=== PATIENT | male | born 1930 | race Caucasian/White ===

== ENCOUNTER 2018-05-26 12:09 | Observation (INO) | payer MEDICARE ==
--- NOTE | 2018-05-26 13:50 | ED ---
General Adult HPI - General Chief complaint: Syncope Stated complaint: passed out in bathroom, hit head Time Seen by Provider: 05/26/18 12:15 Source: patient, family, RN notes reviewed Mode of arrival: wheelchair Limitations: no limitations - History of Present Illness Initial comments: This is an 87-year-old male who presents emergency Department complaining of a syncopal episode. Patient states he had about 10 years ago and ended up getting a stent in his heart. Patient states today he was in the bathroom about taking shower he became lightheaded and then passed out and hit his head. Patient states he notices he is bleeding in the back of the head at this point time. Patient denies any blood thinners. Patient states he has no headache at this time he denies any neck pain denies any numbness weakness. Patient states he never had any chest pain difficulty breathing or shortness of breath. Patient denies any recent fever chills or cough. Patient states currently has no symptoms at all. - Related Data Home Medications Medication Instructions Recorded Confirmed Acetaminophen [Tylenol Arthritis] 650 mg PO BID 05/26/18 05/26/18 Aspirin [Adult Low Dose Aspirin EC] 81 mg PO DAILY 05/26/18 05/26/18 Atorvastatin [Lipitor] 20 mg PO HS 05/26/18 05/26/18 Doxycycline [Vibramycin] 50 mg PO DAILY PRN 05/26/18 05/26/18 Finasteride [Proscar] 5 mg PO DAILY@1200 05/26/18 05/26/18 Furosemide [Lasix] 40 mg PO DAILY PRN 05/26/18 05/26/18 Lisinopril [Zestril] 2.5 mg PO DAILY 05/26/18 05/26/18 Metoprolol Tartrate [Lopressor] 25 mg PO DAILY@1200 05/26/18 05/26/18 Tamsulosin HCl [Flomax] 0.4 mg PO DAILY@1200 05/26/18 05/26/18 Triamcinolone 0.1% Cream [Kenalog 1 applic TOPICAL DAILY PRN 05/26/18 05/26/18 0.1% Cream] metroNIDAZOLE [metroNIDAZOLE 0.75% 1 applic TOPICAL DAILY PRN 05/26/18 05/26/18 Gel] Allergies Allergy/AdvReac Type Severity Reaction Status Date / Time No Known Allergies Allergy Verified 05/26/18 14:10 Review of Systems ROS Statement: Those systems with pertinent positive or pertinent negative responses have been documented in the HPI. ROS Other: All systems not noted in ROS Statement are negative. Past Medical History Past Medical History: Hyperlipidemia, Hypertension, Prostate Disorder History of Any Multi-Drug Resistant Organisms: None Reported Past Surgical History: Heart Catheterization With Stent, Orthopedic Surgery Past Psychological History: No Psychological Hx Reported Smoking Status: Former smoker Past Alcohol Use History: None Reported Past Drug Use History: None Reported General Exam - General Exam Comments Initial Comments: GENERAL: Patient is well-developed and well-nourished. Patient is nontoxic and well- hydrated and is in mild distress. ENT: Neck is soft and supple. No significant lymphadenopathy is noted. Oropharynx is clear. Moist mucous membranes. Neck has full range of motion without eliciting any pain. EYES: The sclera were anicteric and conjunctiva were pink and moist. Extraocular movements were intact and pupils were equal round and reactive to light. Eyelids were unremarkable. PULMONARY: Unlabored respirations. Good breath sounds bilaterally. No audible rales rhonchi or wheezing was noted. CARDIOVASCULAR: There is a regular rate and rhythm without any murmurs gallops or rubs. ABDOMEN: Soft and nontender with normal bowel sounds. No palpable organomegaly was noted. There is no palpable pulsatile mass. SKIN: Skin is clear with no lesions or rashes and otherwise unremarkable. NEUROLOGIC: Patient is alert and oriented x3. Cranial nerves II through XII are grossly intact. Motor and sensory are also intact. Normal speech, volume and content. Symmetrical smile. MUSCULOSKELETAL: Normal extremities with adequate strength and full range of motion. 2+ bilaterally LYMPHATICS: No significant lymphadenopathy is noted PSYCHIATRIC: Normal psychiatric evaluation. Limitations: no limitations Course Vital Signs 05/26/18 05/26/18 05/26/18 12:12 13:12 13:39 Temperature 97.7 F Pulse Rate 80 70 Respiratory 18 18 Rate Blood Pressure 100/61 114/64 121/53 O2 Sat by Pulse 99 99 Oximetry Procedures - Laceration Laceration #1 Consent Obtained: verbal consent Time Out Performed: Yes Indication: laceration Site: scalp Description: linear Depth: simple, single layer Pre-repair: wound explored Size of Sutures: other (3 cathleen were placed wound approximated well) Technique: simple, interrupted Patient Tolerated Procedure: well Medical Decision Making - Medical Decision Making Patient stated that his tetanus is up-to-date EKG shows sinus rhythm with occasional PVC at 70 bpm MO interval is 184 QRS is 138 QT interval 408 QTC is 465. Patient's EKG shows no ST segment elevation or depression or T wave abnormalities are noted. Patient has a right bundle aashish block. I spoke to the patient's primary medical care doctor and he agreed to admit the patient admitted the patient wrote admitting orders. - Lab Data Result diagrams: 05/26/18 13:50 05/26/18 13:50 Lab Results 05/26/18 05/26/18 05/26/18 Range/Units 13:50 13:50 13:50 WBC 9.7 (3.8-10.6) k/uL RBC 4.23 L (4.30-5.90) m/uL Hgb 13.9 (13.0-17.5) gm/dL Hct 42.9 (39.0-53.0) % MCV 101.2 H (80.0-100.0) fL MCH 32.8 (25.0-35.0) pg MCHC 32.4 (31.0-37.0) g/dL RDW 13.1 (11.5-15.5) % Plt Count 204 (150-450) k/uL Neutrophils % 82 % Lymphocytes % 10 % Monocytes % 5 % Eosinophils % 1 % Basophils % 0 % Neutrophils # 8.0 H (1.3-7.7) k/uL Lymphocytes # 0.9 L (1.0-4.8) k/uL Monocytes # 0.5 (0-1.0) k/uL Eosinophils # 0.1 (0-0.7) k/uL Basophils # 0.0 (0-0.2) k/uL Macrocytosis Slight PT (9.0-12.0) sec INR (<1.2) APTT (22.0-30.0) sec Sodium 141 (137-145) mmol/L Potassium 5.2 H (3.5-5.1) mmol/L Chloride 106 (98-107) mmol/L Carbon Dioxide 27 (22-30) mmol/L Anion Gap 8 mmol/L BUN 25 H (9-20) mg/dL Creatinine 1.22 (0.66-1.25) mg/dL Est GFR (CKD-EPI)AfAm 61 (>60 ml/min/1.73 sqM) Est GFR (CKD-EPI)NonAf 52 (>60 ml/min/1.73 sqM) Glucose 104 H (74-99) mg/dL Calcium 9.5 (8.4-10.2) mg/dL Magnesium 2.3 (1.6-2.3) mg/dL Total Bilirubin 0.4 (0.2-1.3) mg/dL AST 27 (17-59) U/L ALT 29 (21-72) U/L Alkaline Phosphatase 66 (38-126) U/L Total Creatine Kinase 123 (55-170) U/L CK-MB (CK-2) 1.8 (0.0-2.4) ng/mL CK-MB (CK-2) Rel Index 1.5 Troponin I <0.012 (0.000-0.034) ng/mL Total Protein 7.2 (6.3-8.2) g/dL Albumin 4.2 (3.5-5.0) g/dL 05/26/18 Range/Units 13:50 WBC (3.8-10.6) k/uL RBC (4.30-5.90) m/uL Hgb (13.0-17.5) gm/dL Hct (39.0-53.0) % MCV (80.0-100.0) fL MCH (25.0-35.0) pg MCHC (31.0-37.0) g/dL RDW (11.5-15.5) % Plt Count (150-450) k/uL Neutrophils % % Lymphocytes % % Monocytes % % Eosinophils % % Basophils % % Neutrophils # (1.3-7.7) k/uL Lymphocytes # (1.0-4.8) k/uL Monocytes # (0-1.0) k/uL Eosinophils # (0-0.7) k/uL Basophils # (0-0.2) k/uL Macrocytosis PT 9.9 (9.0-12.0) sec INR 1.0 (<1.2) APTT 21.4 L (22.0-30.0) sec Sodium (137-145) mmol/L Potassium (3.5-5.1) mmol/L Chloride (98-107) mmol/L Carbon Dioxide (22-30) mmol/L Anion Gap mmol/L BUN (9-20) mg/dL Creatinine (0.66-1.25) mg/dL Est GFR (CKD-EPI)AfAm (>60 ml/min/1.73 sqM) Est GFR (CKD-EPI)NonAf (>60 ml/min/1.73 sqM) Glucose (74-99) mg/dL Calcium (8.4-10.2) mg/dL Magnesium (1.6-2.3) mg/dL Total Bilirubin (0.2-1.3) mg/dL AST (17-59) U/L ALT (21-72) U/L Alkaline Phosphatase (38-126) U/L Total Creatine Kinase (55-170) U/L CK-MB (CK-2) (0.0-2.4) ng/mL CK-MB (CK-2) Rel Index Troponin I (0.000-0.034) ng/mL Total Protein (6.3-8.2) g/dL Albumin (3.5-5.0) g/dL Disposition Clinical Impression: Scalp laceration, Syncope and collapse Disposition: ADMITTED IP TO THIS HOSP Referrals: Santino Fields MD [Primary Care Provider] - 1-2 days Time of Disposition: 15:13
[2018-05-26 14:20] LABS: Basophils % (A) 0 %; Eosinophils # (A) 0.1 k/uL (0-0.7); Eosinophils % (A) 1 %; HCT 42.9 % (39.0-53.0); HGB 13.9 gm/dL (13.0-17.5); Lymphocytes # (A) 0.9 k/uL (1.0-4.8); Lymphocytes % (A) 10 %; MCH 32.8 pg (25.0-35.0); MCHC 32.4 g/dL (31.0-37.0); MCV 101.2 fL (80.0-100.0); Macrocytosis Slight; Mean Platelet Volume 7.1; Monocytes # (A) 0.5 k/uL (0-1.0); Monocytes % (A) 5 %; Neutrophils % (A) 82 %; Platelet Count 204 k/uL (150-450); RBC 4.23 m/uL (4.30-5.90); RDW 13.1 % (11.5-15.5); WBC 9.7 k/uL (3.8-10.6)
--- NOTE | 2018-05-26 14:20 | CT ---
EXAMINATION TYPE: CT brain chetna chaparro DATE OF EXAM: 05/26/2018 COMPARISON: None HISTORY: syncopal episode/fell backwards /posterior head laceration CT DLP: 1606.[address] of the brain was performed. The ventricles, basal cisterns and sulci overlying the cerebral convexities demonstrate mild enlargem ent. There is no evidence for intracranial hemorrhage or sulcal effacement. There is decreased attenuatio n about the periventricular white matter and deep white matter of both cerebral hemispheres, compatib le with chronic small vessel ischemia. No mass effects are seen. If symptoms persist consider MRI. Osseous calvarium is intact. IMPRESSION: 1. Age related atrophic and chronic small vessel ischemic change without acute intracranial process seen at this time. CT Cervical Spine: Unenhanced CT of the cervical spine was performed with bone and soft tissue window settings submitted . Coronal and sagittal reconstruction is obtained. There is normal alignment and prevertebral soft tissues. No evidence for acute cervical fracture . Scattered degenerative disc disease and spondylosis. Biapical scarring. IMPRESSION: 1. No evidence for acute fracture or subluxation of the cervical spine.
--- NOTE | 2018-05-26 14:20 | XR ---
EXAMINATION TYPE: XR chest 2V DATE OF EXAM: 05/26/2018 COMPARISON: NONE HISTORY: Shortness of breath TECHNIQUE: Frontal and lateral views of the chest are obtained. FINDINGS: Scattered senescent parenchymal changes noted. Hyperinflation compatible with COPD. No evidence for infiltrate. No evidence for atelectasis. Heart size is mildly enlarged. Mediastinal structures are stable and grossly unremarkable. No evidence for hilar prominence. Degenerative changes dorsal spine. IMPRESSION: 1. No evidence for acute pulmonary disease.
[2018-05-26 14:33] LABS: Albumin 4.2 g/dL (3.5-5.0); Calcium 9.5 mg/dL (8.4-10.2); Magnesium 2.3 mg/dL (1.6-2.3); Potassium 5.2 mmol/L (3.5-5.1); Total Bilirubin 0.4 mg/dL (0.2-1.3); Total Protein 7.2 g/dL (6.3-8.2)
[2018-05-26 14:37] LABS: Creatine Kinase 123 U/L (55-170)
[2018-05-26 14:41] LABS: Prothrombin Time 9.9 sec (9.0-12.0)
[2018-05-26 14:45] LABS: Partial Thromboplastin Time 21.4 sec (22.0-30.0)
[2018-05-26 14:50] LABS: Creatine Kinase MB 1.8 ng/mL (0.0-2.4); Troponin I <0.012 ng/mL (0.000-0.034)
[2018-05-26] MEDS ORDERED: NITROGLYCERIN SL TABS 0.4 MG TAB SUBLINGUAL PRN (15:13)
[2018-05-26 18:11] VITALS: RESP 18
[2018-05-26] MEDS ORDERED: DOXYCYCLINE 50 MG CAP PO PRN (18:14)
[2018-05-26] MEDS ORDERED: METRONIDAZOLE TOPICAL PRN (18:14)
--- NOTE | 2018-05-26 18:48 | HP ---
HISTORY AND PHYSICAL Mr. He is an 87-year-old gentleman who presented to the emergency room this morning. Apparently he got up, went to the bathroom, felt somewhat lightheaded and then passed out. He hit his head on the floor in the bathroom and has received 3 cathleen. His heard the fall. The patient was responsive but did not get up right away. Eventually EMS was called. Patient at that time refused transport, but later family members brought the patient to the emergency room. Patient states otherwise he has had no chest pain, shortness of breath. He has had some lightheaded and dizziness associated with this as mentioned above. Overall in the past few weeks, though , he has been doing well, without any unusual concerns. Past medical history: He does have a history of hypertension, hyperlipidemia, osteoarthritis of the knees, BPH, history of coronary artery disease, for which in the past he had stent placed. Venous insufficiency. MEDICATIONS: Home medications include: 1. Acetaminophen as needed for pain. 2. Low-dose aspirin 81 mg daily. 3. Atorvastatin 20 mg at bedtime. 4. Doxycycline 50 mg daily for his rosacea. 5. Proscar 5 mg daily for BPH. 6. Lasix 40 mg daily if needed for edema. 7. Lisinopril has been decreased down to 2.5 daily. 8. Metoprolol 25 mg daily. 9. Tamsulosin 0.4 mg. 10.He does use metronidazole topically applied to the rosacea and triamcinolone cream as needed p.r.n. ALLERGIES: NO KNOWN ALLERGIES. REVIEW OF SYSTEMS: As mentioned in history of present illness. No other episodes of blacking out. No unusual headaches. No visual disturbances. No nausea, vomiting. No new urinary or bowel symptomatology. No chest pain. He has had 2+ edema that has been rather consistent overall. FAMILY HISTORY: Positive for heart disease in his mother and asthma in a grandfather. SOCIAL HISTORY: He still lives with his locally. He is a former smoker. No history of any excessive alcohol usage. SURGICAL HISTORY: Surgical history includes: 1. Previous heart catheterization and stenting. 2. Previous orthopedic surgery. PHYSICAL EXAMINATION: He is sitting up in chair, generally alert and oriented. Initial temperature was 97.7. Blood pressure was 100/61, but did increase up to 121/53. Pulse 80 to 70, respirations around 18, oxygen saturation 99. Head does reveal a laceration with 3 cathleen in the back of the occiput. The neck is not stiff. Extraocular movements were intact. No carotid bruits or adenopathy detected in the neck. Lungs were clear on auscultation. Heart tones were for the most part regular without definite murmurs or rubs appreciated. Abdomen was nontender, soft. No organomegaly. Extremities revealed 2+ edema bilaterally. Neurologically, though, he is alert and oriented. Cranial nerves intact. No focal weakness noted peripherally. LABS: Lab testing revealed a white count of 9.7, hemoglobin 13.9, and a platelet count of 204. INR was 1.0. His potassium was slightly elevated at 5.2, CO2 content 27, BUN 25 with creatinine 1.22. Calcium was 9.5, blood sugar 104, GFR of 52. Liver function tests were good. Troponin less than 0.012. Albumin normal at 4.2. EKG revealed a sinus rhythm, right bundle branch block and left anterior fascicular block. No definite ischemic changes noted. Chest x-ray revealed no evidence of active pulmonary disease. CT of the head and neck revealed age-related atrophic and chronic small-vessel ischemic change without acute intracranial process. CT of the neck revealed no evidence of acute fracture of the cervical spine. IMPRESSION: Overall, this 87-year-old gentleman with a history as stated above with a sudden onset of syncope with loss of consciousness, fall and closed head injury. Patient does have underlying hypertension and coronary artery disease as stated above. He will be monitored. Cardiology consult to be obtained. Further labs to be obtained. Further recommendations pending clinical response and results of above. MMODL / IJN: [id number] / [facility]
[2018-05-26 18:57] VITALS: BMI 32.3
[2018-05-26 20:22] LABS: Creatine Kinase 129 U/L (55-170)
[2018-05-26 20:35] LABS: Creatine Kinase MB 1.6 ng/mL (0.0-2.4); Troponin I <0.012 ng/mL (0.000-0.034)
[2018-05-26] MEDS: ACETAMINOPHEN TAB 325 MG TAB PO SCH (20:52)
[2018-05-26] MEDS ORDERED: ATORVASTATIN 20 MG TAB PO SCH (21:00)
[2018-05-27 02:53] LABS: Cholesterol 153 mg/dL (<200); HDL Cholesterol 44 mg/dL (40-60); LDL Cholesterol,Calculated 84 mg/dL (0-99); Triglycerides 126 mg/dL (<150)
[2018-05-27 03:17] LABS: Creatine Kinase 141 U/L (55-170)
[2018-05-27 03:31] LABS: Creatine Kinase MB 1.3 ng/mL (0.0-2.4); Troponin I <0.012 ng/mL (0.000-0.034)
--- NOTE | 2018-05-27 08:07 | P.PN ---
Progress Note - Text The patient is a 87-year-old gentleman who yesterday came to the emergency room after a syncopal type episode after a loss of consciousness in the bathroom hitting his head on the floor and required 3 cathleen. He does have underlying history of coronary artery disease with previous stent placement. This morning he is sitting at the side of the bed. States he generally feels okay without the chest pain or shortness of breath. No new neurological symptomatology. Vital signs blood temperature 97.6 with a pulse of 68 and respirations 18. Blood pressure 121/69 and he is 95% saturated. Lung and heart examination is clear. Patient does have grade 1-2 edema bilaterally. chronically. He is overall alert and oriented. Cranial nerves intact. No focal weakness noted. The troponins 3 were less than 0.012. CKs were also within normal limits. Impressions and plans Patient initially presented with syncopal episode. Cardiology evaluation is in progress. Echocardiogram has been ordered. Patient is being monitored. We'll wait for their further recommendations. I discussed with patient and nursing staff at bedside this morning.
[2018-05-27] MEDS ORDERED: ASPIRIN 325 MG TAB PO SCH (09:00)
[2018-05-27] MEDS ORDERED: ASPIRIN 81 MG PO SCH (09:00)
[2018-05-27] MEDS ORDERED: LISINOPRIL 2.5 MG TAB PO SCH (09:00)
[2018-05-27] MEDS: ACETAMINOPHEN TAB 325 MG TAB PO SCH (09:14)
--- NOTE | 2018-05-27 10:13 | P.CRDCN ---
History of Present Illness History of present illness: This is a pleasant 87-year-old male past medical history significant for coronary artery disease status post angioplasty of the mid RCA in 2005, hypertension, dyslipidemia, peripheral vascular disease, carotid artery disease , former nicotine dependence and enlarged prostate. He follows with Dr. Sevilla in the office. We've been asked to see him in consultation for syncope. He states yesterday he was in the restroom yesterday trying to have a bowel movement. He was unable to do so. He decided to take a shower. Upon standing from the toilet he felt light headed and then passed out. He states he lost consciousness but unsure of how long since he was alone at the time. Scalp laceration requiring stitches. Denies chest pain, shortness of breath, nausea, vomiting, palpitations or diaphoresis. Upon arrival to ED his blood pressure was 100/61 heart rate 80. Telemetry tracings have been unremarkable for acute arrhythmia. He denies any further symptoms of dizziness. EKG reveals right bundle branch block pattern. Chest xray negative for an acute cardiopulmonary process. CT of the brain negative for an acute intracranial process. Age-related atrophic and chronic small vessel ischemic changes noted. Laboratory data reviewed, WBC 9.7, hemoglobin 13.9, platelets 204, sodium 141, potassium 5.2, creatinine 1.22, magnesium 2.3, cardiac enzymes negative 3, LDL 84 and HDL 44. Current cardiac medications include lisinopril 2.5 mg daily, aspirin 81 mg daily , atorvastatin 20 mg daily, Lopressor 25 mg daily and Lasix 40 mg daily when necessary. Most recent echocardiogram performed in the office 2015 reveals preserved left ventricular systolic function with mild TR and mild MR. Most recent carotid duplex performed in February 2018 reveals mild disease in the left ICA, moderate disease in the right ICA with bilateral antegrade flow noted. At the time of my exam: CONSTITUTIONAL: Denies fever. Denies chills. EYES: Denies blurred vision. Denies vision changes. Denies eye pain. EARS, NOSE, MOUTH & THROAT: Denies headache. Denies sore throat. Denies ear pain. CARDIOVASCULAR: Denies chest pain. Denies shortness of breath. Denies orthopnea. Denies PND. Denies palpitations. RESPIRATORY: Denies cough. GASTROINTESTINAL: Denies abdominal pain. Denies diarrhea. Denies constipation. Denies nausea. Denies vomiting. MUSCULOSKELETAL: Denies myalgias. INTEGUMENTARY: Denies pruitis. Denies rash. NEUROLOGIC: Denies numbness. Denies tingling. Denies weakness. PSYCHIATRIC: Denies anxiety. Denies depression. ENDOCRINE: Denies fatigue. Denies weight change. Denies polydipsia. Denies polyurina. GENITOURINARY: Denies burning, hematuria or urgency with micturation. HEMATOLOGIC: Denies history of anemia. Denies bleeding. Blood pressure 130/69 heart rate 66 afebrile maintaining oxygen saturation on room air GENERAL: This is a 87-year-old male in no apparent distress at the time of my examination. HEENT: Laceration noted to posterior scalp. Pupils are equal, round. Sclerae anicteric. Conjunctivae are clear. Mucous membranes of the mouth are moist. Neck is supple. There is no jugular venous distention. No carotid bruit is heard. LUNGS: Clear to auscultation no wheezes, rales or rhonchi. No chest wall tenderness is noted on palpation or with deep breathing. HEART: Regular rate and rhythm with systolic ejection murmur at the left sternal border, no rubs or gallops. S1 and S2 heard. ABDOMEN: Soft, non-tender. Bowel sounds are heard. No organomegaly noted. EXTREMITIES: Trace bilateral lower extremity non-pitting edema and no calf tenderness noted. Gauze bandages to left wrist and lower arm. VASCULAR: Radial and dorsalis pedis pulses palpated, no evidence of clubbing. NEUROLOGIC: Patient is awake, alert and oriented x3. ASSESSMENT Vasovagal syncope secondary to hypotension History of coronary artery disease 2006 with angioplasty to mid RCA Hyperkalemia Hypertension Dyslipidemia Peripheral vascular disease, carotid arteries Former nicotine dependence PLAN Check orthostatic vital signs. Obtain 2D echocardiogram and doppler study to assess cardiac structure and function. Discontinue lisinopril for hypotension. Repeat potassium. Increase activity and ambulation in the halls. Watch on telemetry for an acute arrhythmia. Should be able to be discharged home later today if no further symptoms. Follow up with Dr. Sevilla in 2-3 weeks. Thank you kindly for this consultation. Nurse Practitioner note has been reviewed, I agree with a documented findings and plan of care. Patient was seen and examined. Past Medical History Past Medical History: Hyperlipidemia, Hypertension, Prostate Disorder Additional Past Medical History / Comment(s): BPH History of Any Multi-Drug Resistant Organisms: None Reported Past Surgical History: Heart Catheterization With Stent, Orthopedic Surgery Additional Past Surgical History / Comment(s): arthroscopy right knee Date of Last Stent Placement:: 2005 Past Psychological History: No Psychological Hx Reported Smoking Status: Former smoker Past Alcohol Use History: None Reported Past Drug Use History: None Reported - Past Family History Mother History Unknown: Yes Father History Unknown: Yes Medications and Allergies Home Medications Medication Instructions Recorded Confirmed Type Acetaminophen [Tylenol Arthritis] 650 mg PO BID 05/26/18 05/26/18 History Aspirin [Adult Low Dose Aspirin EC] 81 mg PO DAILY 05/26/18 05/26/18 History Atorvastatin [Lipitor] 20 mg PO HS 05/26/18 05/26/18 History Doxycycline [Vibramycin] 50 mg PO DAILY PRN 05/26/18 05/26/18 History Finasteride [Proscar] 5 mg PO DAILY@1200 05/26/18 05/26/18 History Furosemide [Lasix] 40 mg PO DAILY PRN 05/26/18 05/26/18 History Metoprolol Tartrate [Lopressor] 25 mg PO DAILY@1200 05/26/18 05/26/18 History Tamsulosin HCl [Flomax] 0.4 mg PO DAILY@1200 05/26/18 05/26/18 History Triamcinolone 0.1% Cream [Kenalog 1 applic TOPICAL DAILY PRN 05/26/18 05/26/18 History 0.1% Cream] metroNIDAZOLE [metroNIDAZOLE 0.75% 1 applic TOPICAL DAILY PRN 05/26/18 05/26/18 History Gel] Allergies Allergy/AdvReac Type Severity Reaction Status Date / Time No Known Allergies Allergy Verified 05/26/18 14:10 Physical Exam Vitals: Vital Signs Temp Pulse Pulse Resp BP BP BP 05/27/18 07:00 97.6 F 68 18 05/27/18 04:00 18 05/27/18 03:00 98 F 72 18 05/26/18 23:01 18 05/26/18 23:00 97.9 F 70 18 05/26/18 20:00 18 05/26/18 18:07 97.4 F L 86 18 05/26/18 17:55 98.0 F 05/26/18 17:45 87 20 142/52 05/26/18 16:02 74 18 125/62 05/26/18 15:27 134/63 123/62 05/26/18 13:39 70 18 121/53 05/26/18 13:12 114/64 05/26/18 12:12 97.7 F 80 18 100/61 BP BP Pulse Ox 05/27/18 07:00 121/69 95 05/27/18 04:00 05/27/18 03:00 109/61 97 05/26/18 23:01 05/26/18 23:00 94/54 97 05/26/18 20:00 05/26/18 18:07 127/67 95 05/26/18 17:55 05/26/18 17:45 97 05/26/18 16:02 100 05/26/18 15:27 100/53 05/26/18 13:39 99 05/26/18 13:12 05/26/18 12:12 99 Intake and Output 05/26/18 05/27/18 05/27/18 22:59 06:59 14:59 Other: # Voids 1 2 Weight 99.6 kg Results 05/26/18 13:50 05/26/18 13:50 Cardiac Enzymes 05/26/18 05/26/18 05/26/18 Range/Units 13:50 13:50 19:18 AST 27 (17-59) U/L CK-MB (CK-2) 1.8 1.6 (0.0-2.4) ng/mL Troponin I <0.012 <0.012 (0.000-0.034) ng/mL 05/27/18 Range/Units 02:00 AST (17-59) U/L CK-MB (CK-2) 1.3 (0.0-2.4) ng/mL Troponin I <0.012 (0.000-0.034) ng/mL Coagulation 05/26/18 Range/Units 13:50 PT 9.9 (9.0-12.0) sec APTT 21.4 L (22.0-30.0) sec Lipids 05/27/18 Range/Units 02:00 Triglycerides 126 (<150) mg/dL Cholesterol 153 (<200) mg/dL HDL Cholesterol 44 (40-60) mg/dL CBC 05/26/18 Range/Units 13:50 WBC 9.7 (3.8-10.6) k/uL RBC 4.23 L (4.30-5.90) m/uL Hgb 13.9 (13.0-17.5) gm/dL Hct 42.9 (39.0-53.0) % Plt Count 204 (150-450) k/uL Comprehensive Metabolic Panel 05/26/18 Range/Units 13:50 Sodium 141 (137-145) mmol/L Potassium 5.2 H (3.5-5.1) mmol/L Chloride 106 (98-107) mmol/L Carbon Dioxide 27 (22-30) mmol/L BUN 25 H (9-20) mg/dL Creatinine 1.22 (0.66-1.25) mg/dL Glucose 104 H (74-99) mg/dL Calcium 9.5 (8.4-10.2) mg/dL AST 27 (17-59) U/L ALT 29 (21-72) U/L Alkaline Phosphatase 66 (38-126) U/L Total Protein 7.2 (6.3-8.2) g/dL Albumin 4.2 (3.5-5.0) g/dL Current Medications Generic Name Dose Route Start Last Admin Trade Name Freq PRN Reason Stop Dose Admin Acetaminophen 650 mg 05/26/18 21:00 05/26/18 20:52 Tylenol Tab PO Not Given BID [facility] Aspirin 81 mg 05/27/18 09:00 Aspirin PO DAILY [facility] Atorvastatin Calcium 20 mg 05/26/18 21:00 05/26/18 19:48 Lipitor PO 20 mg HS [facility] Administration Doxycycline Monohydrate 50 mg 05/26/18 18:14 Vibramycin PO DAILY PRN ROSACEA Finasteride 5 mg 05/27/18 12:00 Proscar PO DAILY@1200 [facility] Lisinopril 2.5 mg 05/27/18 09:00 Zestril PO DAILY [facility] Metoprolol Tartrate 25 mg 05/27/18 12:00 Lopressor PO DAILY@1200 [facility] Nitroglycerin 0.4 mg 05/26/18 15:13 Nitrostat SUBLINGUAL Q5M PRN Chest Pain Metronidazole [ 1 applic 05/26/18 18:14 Metronidazole 0.75% TOPICAL Gel] 1 Applic DAILY PRN ROSACEA Tamsulosin HCl 0.4 mg 05/27/18 12:00 Flomax PO DAILY@1200 [facility] Intake and Output 05/26/18 05/27/18 05/27/18 22:59 06:59 14:59 Other: # Voids 1 2 Weight 99.6 kg 05/26/18 13:50 05/26/18 13:50
--- NOTE | 2018-05-27 11:25 | ECHOF ---
Referral Reason:syncope MEASUREMENTS -------- HEIGHT: 175.3 cm WEIGHT: 99.3 kg BP: IVSd: 1.3 cm (0.6 - 1.1) LVIDd: 3.7 cm (3.9 - 5.3) LVPWd: 1.2 cm (0.6 - 1.1) IVSs: 1.6 cm LVIDs: 2.3 cm LVPWs: 1.5 cm Ao Diam: 3.1 cm (2.0 - 3.7) AV Cusp: 2.2 cm (1.5 - 2.6) LA Diam: 2.9 cm (2.7 - 3.8) EPSS: 1.1 cm MV E Blanco: 0.52 m/s MV DecT: 269 ms MV A Blanco: 0.83 m/s MV E/A Ratio: 0.62 AR PHT: 471 ms RAP: 5.00 mmHg RVSP: 23.03 mmHg MV EF SLOPE: 69.06 mm/s (70 - 150) MV EXCURSION: 1.44 cm (> 18.000) FINDINGS -------- Sinus rhythm. This was a technically good study. The left ventricular size is normal. There is mild concentric left ventricular hypertrophy. Overa ll left ventricular systolic function is low-normal with, an EF between 50 - 55 %. The right ventricle is normal in size and function. The left atrium is normal in size. The right atrium is normal in size. Aortic valve is trileaflet and is mildly thickened. Trace amount of aortic regurgitation. Mild mitral regurgitation is present. Mild tricuspid regurgitation present. The right ventricular systolic pressure, as measured by Doppl er, is 23.03mmHg. Pulmonic valve appears structurally normal. The aortic root, ascending aorta and aortic arch are normal. The pericardium is normal. CONCLUSIONS -------- 1. Sinus rhythm. 2. This was a technically good study. 3. The left ventricular size is normal. 4. There is mild concentric left ventricular hypertrophy. 5. Overall left ventricular systolic function is low-normal with, an EF between 50 - 55 %. 6. The right ventricle is normal in size and function. 7. The left atrium is normal in size. 8. The right atrium is normal in size. 9. Aortic valve is trileaflet and is mildly thickened. 10. Trace amount of aortic regurgitation. 11. Mild mitral regurgitation is present. 12. Mild tricuspid regurgitation present. 13. The right ventricular systolic pressure, as measured by Doppler, is 23.03mmHg. 14. Pulmonic valve appears structurally normal. 15. The aortic root, ascending aorta and aortic arch are normal. 16. The pericardium is normal. [employer] ERECTING: Sneha Messina RDCS
[2018-05-27 11:42] VITALS: BP 108/71; PULSE 89; TEMP 97.5
[2018-05-27] MEDS ORDERED: TAMSULOSIN 0.4 MG CAP.ER.24H PO SCH (12:00)
[2018-05-27] MEDS ORDERED: METOPROLOL TARTRATE 25 MG TAB PO SCH (12:00)
[2018-05-27] MEDS ORDERED: FINASTERIDE 5 MG TAB PO SCH (12:00)
--- NOTE | 2018-05-28 08:41 | DS ---
DISCHARGE SUMMARY Mr. He is an 87-year-old gentleman who lost consciousness and passed out in his bathroom, suffering a laceration requiring 3 cathleen to the back of his head and a post concussion. Generally, patient was brought by family into the emergency room. He does have a past history of coronary artery disease and stenting, hyperlipidemia, hypertension. Laboratory testing revealed a white count of 9.7, hemoglobin 13.9 , and platelet count 204. His BUN was 25 with creatinine 1.22 with a GFR of 52. Liver function tests were good. Troponins were all less than 0.012. The patient's EKG revealed right bundle branch block and left anterior fascicular block without ischemic changes and chest x-ray revealed no evidence of active pulmonary disease. CT scan head and neck revealed evidence of atrophy and chronic small-vessel ischemic changes without any acute intracranial process or cervical spine fracture. Patient was placed in observation. Consultation obtained with Cardiology and patient was monitored without significant even. Further labs reveal the enzymes to remain normal. Echocardiogram revealed a sinus rhythm, normal LV size and ejection fraction between 50% and 55 %. The left atrium was normal in size. There was some mild thickening of the aortic leaflet, normal pericardium. At this point, it was felt patient likely suffered from syncope related to a vasovagal response and he would be continued on his acetaminophen for pain, low-dose aspirin 81 mg, Lipitor 20 mg for cholesterol, doxycycline 50 mg daily for rosacea, Proscar 5 mg daily, Lasix 40 mg as needed for edema only, metoprolol half of a 50 mg tablet daily, tamsulosin 0.4 daily for the prostate. He is on triamcinolone cream as needed 0.1% and topical metronidazole as needed for his rosacea. Patient is to stop his lisinopril. He will follow up in the office in 3 to 5 days and also further cardiology followup. FINAL DISCHARGE DIAGNOSES: 1. Vasovagal syncope with a fall and closed head injury associated with loss of consciousness and concussion syndrome along with laceration of the scalp. 2. This patient has a history of coronary artery disease and previous stenting back in 2005. 3. Underlying hypertension. 4. Underlying hyperlipidemia. 5. Osteoarthritis specifically of the knees. 6. History of benign prostatic hypertrophy. 7. Venous insufficiency chronically. Activities as tolerated. Follow up as mentioned above. Diet to be as tolerated. MMODL / IJN: [id number] / [place]
== END 2018-05-27 14:20 | disposition home or self-care (01) ==
LOC: EC 12:09 → 1SOBS 15:13
PROVIDERS: ADMIT Internal Medicine; ATTEND Internal Medicine
DX: R55 Syncope and collapse (principal); S01.01XA Laceration without foreign body of scalp, initial encounter; S06.0X9A Concussion with loss of consciousness of unspecified duration, initial encounter; I25.10 Atherosclerotic heart disease of native coronary artery without angina pectoris; E87.5 Hyperkalemia; I45.2 Bifascicular block; L71.9 Rosacea, unspecified; I10 Essential (primary) hypertension; E78.5 Hyperlipidemia, unspecified; I73.9 Peripheral vascular disease, unspecified; Z95.5 Presence of coronary angioplasty implant and graft; Z79.82 Long term (current) use of aspirin; Z79.899 Other long term (current) drug therapy; W19.XXXA Unspecified fall, initial encounter; Y92.002 Bathroom of unspecified non-institutional (private) residence as the place of occurrence of the external cause; I87.2 Venous insufficiency (chronic) (peripheral); M17.0 Bilateral primary osteoarthritis of knee; N40.0 Benign prostatic hyperplasia without lower urinary tract symptoms; Z82.49 Family history of ischemic heart disease and other diseases of the circulatory system; Z82.5 Family history of asthma and other chronic lower respiratory diseases; Z87.891 Personal history of nicotine dependence
CPT/HCPCS: 99285; 36415; 93005; 93306; 80061; 80053; 82550 ×2; 82553 ×2; 83735; 84132; 84484 ×2; 85025; 85610; 85730; 71046; 72125; 70450; 12001; G0378 ×2; S0138